=== PATIENT | male | born 1990 | race Caucasian/White ===

== ENCOUNTER 2016-10-02 21:54 | Emergency (ER) | payer OTHER ==
[2016-10-02 22:21] LABS: EOSINOPHIL (%) 0.8 % (0-5); EOSINOPHIL COUNT 0.1 K/uL (0-0.3); IMMATURE GRANULOCYTE (%) 0.3 % (0.0-0.7); IMMATURE GRANULOCYTE COUNT 0.3 K/uL; MCH 32.1 PG (29.0-34.0); MCHC 36.5 G/DL (30.0-36.0); MCV 87.8 FL (86-99); MEAN PLAT.VOLUME 10.4 uM^3 (9.0-12.4); MONOCYTE (%) 8.1 % (3-12); MONOCYTE COUNT 0.7 K/uL (0-0.8); NEUTROPHIL (%) 68.9 % (45-76); NEUTROPHIL COUNT 6.3 K/uL (1.8-6.4); PLATELET COUNT 257 K/uL (156-360); RBC DIS.WIDTH-CV 12.5 % (11.8-14.6); RED BLOOD COUNT 5.24 M/uL (4.00-5.50); WHITE BLOOD COUNT 9.2 K/uL (4.1-10.2)
[2016-10-02 22:36] LABS: AMYLASE 29 IU/L (1-118); CHLORIDE 105 mEq/L (99-109); POTASSIUM 3.8 mEq/L (3.7-5.4); SODIUM 140 mEq/L (136-147)
[2016-10-02 22:37] LABS: GLUCOSE 95 mg/dL (70-99)
[2016-10-02 22:39] LABS: ANION GAP 13 MEQ/L (2-14)
[2016-10-02 22:40] LABS: SERUM ETHYL ALCOHOL 13 mg/dL
[2016-10-02 22:42] LABS: UREA NITROGEN (BUN) 16 mg/dL (9-23)
[2016-10-02 22:43] LABS: GFR ESTIMATE (CALCULATED) > 59 mL/min/
[2016-10-02 22:44] LABS: LIPASE 36 U/L (1.0-51.0)
[2016-10-03] MEDS ORDERED: MOTRIN600 MG PO (00:36)
== END 2016-10-03 01:36 | disposition home or self-care (01) ==
LOC: EDBD 21:54 → TRA 21:54
PROVIDERS: Emergency Medicine
DX: S00.212A Abrasion of left eyelid and periocular area, initial encounter (principal); S30.1XXA Contusion of abdominal wall, initial encounter; V54.5XXA Driver of pick-up truck or van injured in collision with heavy transport vehicle or bus in traffic accident, initial encounter; J32.9 Chronic sinusitis, unspecified
CPT/HCPCS: 70450; 71260; 72125; 72129; 72132; 74177; 80048; 81003; 82150; 83690; 85025; 86850; 86900; 86901; 99281; 99285; G0480